=== PATIENT | male | born 1980 | race African-American/Black ===

== ENCOUNTER 2017-04-15 09:10 | Emergency (ER) | payer MEDICAID ==
[~2017-04-15] VITALS: Ht 175.3 cm; Wt 86.2 kg
[2017-04-15 10:35] VITALS: BP 128/78
== END 2017-04-15 12:51 | disposition home or self-care (01) ==
LOC: ER 09:10
DX: S86.111A Strain of other muscle(s) and tendon(s) of posterior muscle group at lower leg level, right leg, initial encounter (principal); F17.210 Nicotine dependence, cigarettes, uncomplicated; X58.XXXA Exposure to other specified factors, initial encounter; Y93.89 Activity, other specified; Y92.89 Other specified places as the place of occurrence of the external cause; Y99.8 Other external cause status
CPT/HCPCS: 29505; 73610; 73700; 93971